=== PATIENT | male | born 1980 | race Hispanic/Latino ===

== ENCOUNTER 2019-01-08 16:09 | Inpatient (IN) | payer MEDICAID, OTHER | END 2019-01-17 11:23 | disposition home or self-care (01) | DRG 430 | LOC: C.ER 16:09 → C.9E 21:16 → C.5E 21:36 | PROC: GZHZZZZ Group Psychotherapy (ICD-10-PCS; principal; 2019-01-08) | PROC: GZ56ZZZ Individual Psychotherapy, Supportive (ICD-10-PCS; 2019-01-08) | DX: F33.2 Major depressive disorder, recurrent severe without psychotic features (principal); F11.23 Opioid dependence with withdrawal; F14.10 Cocaine abuse, uncomplicated; F17.210 Nicotine dependence, cigarettes, uncomplicated; F41.9 Anxiety disorder, unspecified; I10 Essential (primary) hypertension; J45.909 Unspecified asthma, uncomplicated; R45.850 Homicidal ideations; R45.851 Suicidal ideations; Z59.0 Homelessness; Z91.19 Patient's noncompliance with other medical treatment and regimen; F31.30 Bipolar disorder, current episode depressed, mild or moderate severity, unspecified ==